=== PATIENT | male | born 1980 | race Caucasian/White ===

== ENCOUNTER 2022-06-14 14:51 | Inpatient (IN) | payer MEDICAID, OTHER ==
[~2022-06-14] VITALS: Ht 175.3 cm; Wt 104.3 kg
--- NOTE | 2022-06-14 14:51 | NUR ---
Seizure precautions in place.
--- NOTE | 2022-06-14 14:51 | NUR ---
1449 BIBA ALS TO ER BED 10
[2022-06-14 14:52] VITALS: BP 190/120
--- NOTE | 2022-06-14 14:52 | NUR ---
Dr. Verduzco evaluating pt at bedside
[2022-06-14] MEDS ORDERED: NALOXONE 0.4 MG/ML VIAL IVP ONE ×2 (14:53→14:55)
--- NOTE | 2022-06-14 14:55 | NUR ---
Note undone in EDM - 06/14/22 at 1508 by [facility] 42/M BIBA from home for unconscious. Per EMS, patient found unconscious A&OxO GCS 1-1-1 with pinpoint pupils. Per EMS, patient patient with witnessed seizure at home 1-2 min duration full body tonic/clonic. Pt in postical state s/p seizure. Narcan 2mg IN given + response; pt A&Ox4 after medication and admits to "using marijuana bought from a dispensary." EMS BS 238. Patient states nausea, vomiting, fatigue, "foggy." Denies chest pain, SOB, dizziness, headache. Cardiac montior in place; BP 190/120; SpO2 99% on room air; RR 17, HR 81. Bed locked in lowest position, side rails x 1. PMH: seizures, previous OD, DM, cardiac disorder Meds: insulin, unable to obtain med list Allergies: codeine, morphine
--- NOTE | 2022-06-14 14:55 | NUR ---
42/M BIBA from home for ALOC, witnessed seizure, possible overdose. Per EMS, patient found unconscious A&OxO GCS 1-1-1 with pinpoint pupils. Per EMS, patient patient with witnessed seizure at home 1-2 min duration full body tonic/clonic. Pt in postical state s/p seizure. Narcan 2mg IN given + response; pt A&Ox4 after medication and admits to "using marijuana bought from a dispensary." EMS BS 238. Patient states nausea, vomiting, fatigue, "foggy." Denies chest pain, SOB, dizziness, headache. Cardiac montior in place; BP 190/120; SpO2 99% on room air; RR 17, HR 81. Bed locked in lowest position, side rails x 1. PMH: seizures, previous OD, DM, cardiac disorder Meds: insulin, unable to obtain med list Allergies: codeine, morphine
--- NOTE | 2022-06-14 14:55 | NUR ---
PMH: keppra, hydralazine, insulin Patient states last seizure 4 months ago; stopped taking prescribed medications "15 meds" 2 months ago d/t side effects of "feeling tired."
[2022-06-14] MEDS ORDERED: LORazepam 2 MG/ML VIAL ONE (15:02)
--- NOTE | 2022-06-14 15:02 | NUR ---
Patient with seizure-like activity. Dr. Verduzco made aware and at bedside evaluating patient
--- NOTE | 2022-06-14 15:10 | NUR ---
Patient transported to CT by amanda with primary RN attached to phototypesetting equipment monitor.
[2022-06-14 15:11] LABS: BASOPHILS # (AUTO) 0.1 K/uL (0.00-0.22); BASOPHILS % (AUTO) 0.9 % (0.0-2.0); EOSINOPHILS # (AUTO) 0.2 K/uL (0-0.4); EOSINOPHILS % (AUTO) 1.5 % (0.0-4.0); HEMATOCRIT 46.4 % (36-52); HEMOGLOBIN 16.6 g/dL (12.0-18.0); LYMPHOCYTES # (AUTO) 2.9 K/uL (2.0-11.5); LYMPHOCYTES % (AUTO) 27.6 % (20.5-51.1); MEAN CORPUSCULAR HEMOGLOBIN 32 pg (27-31); MEAN CORPUSCULAR HGB CONC 36 g/dL (33-37); MEAN CORPUSCULAR VOLUME 89.3 fL (80-94); MONOCYTES # (AUTO) 0.9 K/uL (0.8-1.0); MONOCYTES % (AUTO) 8.8 % (1.7-9.3); NEUTROPHILS # (AUTO) 6.4 K/uL (1.8-7.7); NEUTROPHILS % (AUTO) 61.2 % (42.2-75.2); PLATELET COUNT (AUTO) 209 K/uL (140-450); RED CELL DISTRIBUTION WIDTH 13.2 % (11.6-13.7); WHITE BLOOD COUNT (AUTO) 10.5 K/uL (4.8-10.8)
[2022-06-14] MEDS ORDERED: NALOXONE PFS 2 MG/2 ML SYR ONE (15:16)
--- NOTE | 2022-06-14 15:21 | NUR ---
Patient with seizure-like activity after CT scan; secured in CT scanner with bilat UE stiffness and LLE convulsion. Charge nurse and Dr. Verduzco called/notified; verbal order for Ativan 1mg IVP to be given per Dr. Verduzco. Addendum: 06/14/22 at 1526 by MED Patient with seizure-like activity after CT scan; secured in CT scanner with bilat UE stiffness and LLE convulsion w/ 30 second duration. Charge nurse and Dr. Verduzco notified; verbal order for Ativan 1mg IVP to be given per Dr. Verduzco.
--- NOTE | 2022-06-14 15:22 | NUR ---
Ativan 1mg IVP given to LAC.
--- NOTE | 2022-06-14 15:23 | NUR ---
Pt with 1 episode vomiting 30cc no blood noted.
--- NOTE | 2022-06-14 15:28 | NUR ---
Patient returned from CT via gurney and placed onto personnel monitor. Bed locked in lowest position, side rails x 2. Seizure precautions remain in place.
--- NOTE | 2022-06-14 15:29 | NUR ---
BP 198/117 HR 91 SpO2 96% room air. Dr. Verduzco notified order to be placed.
[2022-06-14 15:30] LABS: PROTHROMBIN TIME 20.7 secs (10.8-13.4)
[2022-06-14 15:33] LABS: ALBUMIN 3.9 g/dL (3.4-5.0); ANION GAP 12.9 (8-16); CARBON DIOXIDE 30.2 mmol/L (21-32); CREATININE 1.2 mg/dL (0.6-1.3); POTASSIUM 3.1 mmol/L (3.5-5.1); TOTAL BILIRUBIN 0.8 mg/dL (0.0-1.0)
--- NOTE | 2022-06-14 15:36 | NUR ---
Attempted to void no urine output.
[2022-06-14] MEDS ORDERED: hydrALAZINE 20 MG/ML VIAL IVP ONE (15:40)
[2022-06-14] MEDS ORDERED: levETIRAcetam 1,000 MG in NACL 0.9% 100 ML IV ONE (15:40)
[2022-06-14] MEDS ORDERED: LORazepam 2 MG/ML VIAL IVP ONE (15:40)
--- NOTE | 2022-06-14 15:42 | NUR ---
Called pharmacy spoke with Elliot who states will prep Keppra order.
[2022-06-14] MEDS ORDERED: POTASSIUM CHLORIDE 10 MEQ TABER PO ONE (16:05)
[2022-06-14] MEDS ORDERED: NACL 0.9% 1,000 ML IV ONE (16:10)
--- NOTE | 2022-06-14 16:18 | NUR ---
Urinal in place; patient attempted to void states unable to.
[2022-06-14] MEDS ORDERED: ONDANSETRON 4 MG ODT PO ONE (16:50)
[2022-06-14] MEDS ORDERED: ONDANSETRON 4 MG/2 ML VIAL ONE (16:50)
[2022-06-14] MEDS ORDERED: ONDANSETRON 4 MG/2 ML VIAL IVP ONE (16:55)
--- NOTE | 2022-06-14 18:08 | NUR ---
BP 158/106; Dr. Verduzco made aware.
--- NOTE | 2022-06-14 18:09 | NUR ---
Urine sample and Ruby berkowitz walked to lab and handed to [facility].
--- NOTE | 2022-06-14 18:09 | NUR ---
Patient placed in new gown and blankets provided. Patient A&Ox4, denies nausea, pain at this time. Pt states "I feel groggy." case monitor in place. Bed locked in lowest position, side rails x 1.
--- NOTE | 2022-06-14 18:35 | NUR ---
POC: Nancy Retana (Sister) [phone]
--- NOTE | 2022-06-14 18:35 | NUR ---
Verbal consent received to speak with Nadja Breen (significant other); status update provided regarding admission.
--- NOTE | 2022-06-14 18:35 | NUR ---
Per Nadja, patient has pacemaker left chest 10/22. PMH: multiple CVA's (last 03/2022), DM2, nerve issues, HTN, seizures Meds: vimpat, potassium, keppra, amlodipine, basaglar pen, admelog, trulicity, hydralazine, lipitor Allergies: tylenol w/ codeine, morphine Nadja states pt with 2 witnessed seizures 2 mins each full tonic/clonic prior to arrival; pt able to ambulate to bed. Pt with vomiting episodes. Last seizure: 5 months ago. Denies head/neck/back pain, trauma/fall/injury. No oral trauma.
[2022-06-14 18:43] LABS: BARBITURATE, URINE NEGATIVE ng/ml (NEG <=200); BENZODIAZEPINE, URINE NEGATIVE ng/mL (NEG <=200); COCAINE, URINE NEGATIVE ng/mL (NEG <=300)
[2022-06-14 18:44] LABS: CANNABINOID, URINE POSITIVE ng/mL (NEG <=50); OPIATE, URINE NEGATIVE ng/mL (NEG <=2000); PHENCYCLIDINE SCREEN,URINE NEGATIVE ng/mL (NEG <=25)
[2022-06-14] MEDS ORDERED: ATOR10TA PO (18:49)
[2022-06-14] MEDS ORDERED: HYDR-1098 PO (18:49)
[2022-06-14] MEDS ORDERED: AMLO10TA PO (18:49)
[2022-06-14] MEDS ORDERED: INSU100I56 SQ (18:49)
[2022-06-14] MEDS ORDERED: LEVE750T25 PO (18:49)
[2022-06-14] MEDS ORDERED: DULA3PEN SQ (18:49)
[2022-06-14] MEDS ORDERED: INSU100V3 SQ (18:49)
[2022-06-14] MEDS ORDERED: LACO200T PO (18:49)
[2022-06-14] MEDS ORDERED: POTASSIUM CHLORIDE 10 MEQ TABER PO PRN (18:55)
[2022-06-14] MEDS ORDERED: DOCUSATE SODIUM 100 MG GELCAP PO PRN (18:55)
[2022-06-14] MEDS ORDERED: ACETAMINOPHEN 325 MG TAB PO PRN (18:55)
[2022-06-14] MEDS ORDERED: ZOLPIDEM 5 MG TAB PO PRN (18:55)
[2022-06-14] MEDS ORDERED: guaiFENesin DM 200/20 MG-10 ML 10 ML UDC PO PRN (18:55)
[2022-06-14] MEDS ORDERED: lisinopriL 20 MG TAB PO ONE (19:00)
[2022-06-14 19:25] LABS: CHOL/HDL RATIO 5.2 (1-4.5); FREE T4 (FREE THYROXINE) 1.38 ng/dL (0.76-1.46); MAGNESIUM 2.1 mg/dL (1.8-2.4); PHOSPHORUS 2.4 mg/dL (2.5-4.9); THYROID STIMULATING HORMONE 1.23 uIU/mL (0.34-3.74)
--- NOTE | 2022-06-14 19:27 | NUR ---
Report and transfer of care endorsed to BLADIMIR Odom and DEEP Rivero.
--- NOTE | 2022-06-14 19:40 | NUR ---
42 Y/O M DIAGNOSED WITH EPILEPTICUS, DENIES PAIN. A&OX4, NONAMBULATORY FOR SAFETY DUE TO SEIZURES. PT RECIEVED NARCAN 2MG FOR AN OD. PT IS POSITIVE FOR MARIJUANA. PT HAS A PACEMAKER IN HIS L CHEST. PMH- CVA 2021, DIABETES ALLERGIES- CODEINE, MORPHINE
--- NOTE | 2022-06-14 20:00 | NUR ---
PT REPOSTIONED FOR COMFORT
[2022-06-14] MEDS ORDERED: lisinopriL 20 MG TAB ONE (20:50)
[2022-06-14] MEDS: NACL 0.9% 1,000 ML IV SCH (21:00)
--- NOTE | 2022-06-14 21:40 | NUR ---
PATIENT YELLING NURSE ACROSS ER. STATED THAT HE WAS ANXIOUS AND AGITATED.
--- NOTE | 2022-06-14 21:44 | NUR ---
PATIENT FEELING ANXIOUS AND STATED THAT HE FEELS CRAMPING EVERYWHERE. PRN MEDS GIVEN ORDERED
[2022-06-14] MEDS: levETIRAcetam 500 MG TAB PO SCH (21:45)
[2022-06-14] MEDS: LORazepam 2 MG/ML VIAL IVP PRN (21:45)
--- NOTE | 2022-06-14 22:00 | NUR ---
BP 155/79.
--- NOTE | 2022-06-14 22:45 | NUR ---
Patient will be admitted to care of DOMINIQUE PENDLETON. Admited to [facility]G. Will go to room 119B. Belongings list completed. Report to KATHY ADAME.
[2022-06-14 22:55] VITALS: BP 148/97
--- NOTE | 2022-06-14 22:55 | NUR ---
RECEIVED PT IN BED, ATIVAN GIVEN IN ER, ABLE TO SAY FEW WORDS WHEN MOVING TO THE BED. NO S/SX OF PAIN NOR DISCOMFORT. NO ACUTE RESPIRATORY DISTRESS NOTED. SKIN WARM AND DRY TOP TOUCH. BED IN THE LOWEST AND LOCKED POSITION FOR SAFETY, PADDED SIDE RAILS FOR SEIZURE PRECAUTION. CALL LIGHT PLACED WITHIN REACH.
[2022-06-15] VITALS: BP 161/95
[2022-06-15] MEDS: hydrALAZINE 20 MG/ML VIAL IVP PRN ×2 (00:02→08:41)
--- NOTE | 2022-06-15 02:00 | NUR ---
ASSISTED PT TO THE BATHROOM AND BACK TO BED, HAD A BOWEL MOVEMENT, VOIDED AND COLLECTED URINE AND SENT TO THE LAB ORDERED. PT STILL SLEEPY AND WOULD LIKE TO ANSWER ADMITTING QUESTIONS IN THE MORNING. MADE COMFORTABLE IN BED. CALL LIGHT PLACED WITHIN REACH,
[2022-06-15 02:50] LABS: APPEARANCE,URINE CLEAR (CLEAR); BILIRUBIN,URINE NEGATIVE (NEGATIVE); BLOOD, URINE NEGATIVE (NEGATIVE); COLOR,URINE YELLOW (YELLOW); LEUKOCYTE ESTERASE ,URINE NEGATIVE (NEGATIVE); NITRITE, URINE NEGATIVE (NEGATIVE); UGLUCOSE 2+ (NEGATIVE)
[2022-06-15] MEDS: KETOROLAC 15 MG/ML VIAL IVP PRN ×2 (03:00→09:10)
[2022-06-15] MEDS: ONDANSETRON 4 MG/2 ML VIAL IM/IVP PRN ×4 (03:00→15:49)
--- NOTE | 2022-06-15 04:00 | NUR ---
PATIENT IS ASLEEP. NO S/SX OF PAIN NOR DISCOMFORT. CALL LIGHT IN REACH.
--- NOTE | 2022-06-15 05:48 | NUR ---
JUAN DANIEL ([facility]) WITH PHONE NUMBER [phone] CALLED TO GIVE MEDS PT WAS TAKING AT HOME. VIMPAT 200 MG 2X/DAY AND KEPPRA 500 MG 3 TABS 2X/DAY. READ BACK AND JUAN DANIEL CONFIRMED. WILL UPDATE MED RECON.
[2022-06-15] MEDS ORDERED: LEVE500T18 PO (05:52)
--- NOTE | 2022-06-15 06:24 | NUR ---
PATIENT IS ASLEEP. ALL NEEDS ATTENDED TO. NO S/SX OF DISTRESS NOTED. NO SEIZURE DURING THE SHIFT. SAFETY PRECAUTIONS IN PLACE, CALL LIGHT IN REACH.
[2022-06-15 07:01] LABS: BASOPHILS % (AUTO) 0.5 % (0.0-2.0); EOSINOPHILS # (AUTO) 0.1 K/uL (0-0.4); HEMATOCRIT 43.6 % (36-52); HEMOGLOBIN 15.6 g/dL (12.0-18.0); LYMPHOCYTES # (AUTO) 2.4 K/uL (2.0-11.5); LYMPHOCYTES % (AUTO) 30.1 % (20.5-51.1); MEAN CORPUSCULAR HEMOGLOBIN 32 pg (27-31); MEAN CORPUSCULAR HGB CONC 36 g/dL (33-37); MEAN CORPUSCULAR VOLUME 89.1 fL (80-94); MONOCYTES # (AUTO) 0.7 K/uL (0.8-1.0); MONOCYTES % (AUTO) 9.3 % (1.7-9.3); NEUTROPHILS # (AUTO) 4.8 K/uL (1.8-7.7); NEUTROPHILS % (AUTO) 59.1 % (42.2-75.2); PLATELET COUNT (AUTO) 208 K/uL (140-450); RED BLOOD CELL COUNT(AUTO) 4.89 MIL/uL (4.20-6.10); RED CELL DISTRIBUTION WIDTH 13.4 % (11.6-13.7)
[2022-06-15 07:36] LABS: ANION GAP 11.2 (8-16); CARBON DIOXIDE 28.9 mmol/L (21-32); POTASSIUM 3.1 mmol/L (3.5-5.1)
[2022-06-15 08:00] VITALS: BP 189/92
[2022-06-15] MEDS: levETIRAcetam 500 MG TAB PO SCH (08:39)
[2022-06-15] MEDS ORDERED: PANTOPRAZOLE 40 MG TABEC PO SCH (09:00)
[2022-06-15] MEDS ORDERED: methocarbamoL 500 MG TAB PO PRN (09:00)
[2022-06-15] MEDS: LORazepam 2 MG/ML VIAL IVP PRN (09:20)
[2022-06-15] MEDS: GABAPENTIN 300 MG CAP PO SCH ×3 (09:30→17:00)
[2022-06-15] MEDS ORDERED: levETIRAcetam 1,000 MG in NACL 0.9% 100 ML IV SCH (09:30)
[2022-06-15] MEDS ORDERED: KETOROLAC 30 MG/ML VIAL IM SCH (09:45)
--- NOTE | 2022-06-15 09:46 | NUR ---
PATIENT HAS BEEN SCREENED AND CATEGORIZED MODERATE NUTRITION RISK. PATIENT WILL BE SEEN WITHIN 3-5 DAYS OF ADMISSION. REVIEWED BY ASHOK GOODEN RD
--- NOTE | 2022-06-15 11:01 | NUR ---
AT ROUGHLY 0835, GRINDER SET UP OPERATOR CENTERLESS NOTIFIED PRIMARY RN OF BLOOD PRESSURE OF 189/92. PRN HYDRALAZINE ADMINISTERED PER MD ORDER, WELL SCHEDULED MEDICATION. PT ASSISTED TO THE REST ROOM, STAND BY ASSIST. PT REPORTS PAIN, AT 0910, PRN TORADOL ADMINISTERED IV. AT ROUGHLY 0915, PT BECAME TO SEIZE. ASSISTANCE WAS CALLED. PT LAID FLAT AND TO THE SIDE, PT REMAINED FREE OF INJURY. AT 0920, PRN ATIVAN ADMINSTERED FOR SEIZURE. DR RENEE AT BEDSIDE, AT 0920, ANOTHER DOSE OF 2MG/1ML, WAS ADMINISTERED IM INJECTION TO CONTROL SEIZURE. WARM COMPRESSIONS WERE PLACED ON PATIENTS LEGS FOR MUSCLE SPASMS. PT WAS PLACED ON 2L NC, O2 SATURATIONS OF 98%, BLOOD PRESSURE 148/88, HEART RATE 106 AND PLACED ON TELEMONITOR. SISTER AT BEDSIDE. AT 0955, KEPPRA WAS HUNG IV. AT 1043 ONE TIME DOSE OF TORADOL IM WAS ADMINISTERED. PT CURRENTLY STABLE IN BED, A&OX4, SISTER AT BEDSIDE. ALL SAFETY MEASURES IN PLACE.
[2022-06-15] MEDS ORDERED: NACL 0.9% 2,000 ML IV SCH (11:10)
[2022-06-15] MEDS ORDERED: NACL 0.9% 2,000 ML IV ONE (11:10)
[2022-06-15] MEDS: NACL 0.9% 1,000 ML IV SCH (11:35)
--- NOTE | 2022-06-15 11:41 | NUR ---
PRN ZOFRAN ADMINISTERED PER MD ORDER. MD ORDERED 2L BOLUS OF NS. NOTIFIED MD REGARDING HIGH BLOOD PRESSURE AND CONTRAINDICATION. PENDING NEW ORDERS
[2022-06-15 12:08] LABS: T4 (THYROXINE) 10.4 ug/dL (4.5-12.0)
--- NOTE | 2022-06-15 13:18 | NUR ---
PT HAS BEEN ENDORSED TO ADZE RN. PT ASLEEP IN BED WITH CHEST RISING AND FALLING EVEN AND UNLABORED.
[2022-06-15 16:00] VITALS: BP 149/79
--- NOTE | 2022-06-15 19:30 | NUR ---
RECEIVED REPORT FROM DAY SHIFT RN JAIMIE FOR CONTINUITY OF CARE. PT IS ALERT AND ORIENTATED. PT HAS MULTIPLE IV ON RIGHT AC 20 GAUGE AND LEFT AC 20 GAUGE. SALINE LOCK. PT REFUSED IV FLUIDS. PT HAS BEEN VOMITING AND HAD A SEIZURE IN THE MORNING. ACCORDING TO DAY SHIFT RN PT WANTS TO LEAVE AMA. WAS NOTIFIED. CHECKED WITH PT AND HE WANTS TO LEAVE AMA. DR. RENEE WAS NOTIFIED.
--- NOTE | 2022-06-15 19:50 | NUR ---
PT LEFT AMA WITH . PT WAS SAFELY WHEELED TO PRIVATE VEHICLE.
== END 2022-06-15 19:50 | disposition left against medical advice (07) | DRG 53 ==
LOC: MED 14:51 → MMU 18:56 → MTU 20:54
PROVIDERS: ADMIT Family Medicine; ATTEND Family Medicine
PROC: 4A00X4Z Measurement of Central Nervous Electrical Activity, External Approach (ICD-10-PCS; principal; 2022-06-15)
DX: G40.409 Other generalized epilepsy and epileptic syndromes, not intractable, without status epilepticus (principal); K76.0 Fatty (change of) liver, not elsewhere classified; E11.65 Type 2 diabetes mellitus with hyperglycemia; Z83.3 Family history of diabetes mellitus; F12.10 Cannabis abuse, uncomplicated; E87.6 Hypokalemia; E78.1 Pure hyperglyceridemia; E78.5 Hyperlipidemia, unspecified; Z20.822 Contact with and (suspected) exposure to COVID-19; M62.838 Other muscle spasm; Z53.29 Procedure and treatment not carried out because of patient's decision for other reasons; Z79.899 Other long term (current) drug therapy; Z88.1 Allergy status to other antibiotic agents; Z88.5 Allergy status to narcotic agent; Z86.73 Personal history of transient ischemic attack (TIA), and cerebral infarction without residual deficits; Z95.0 Presence of cardiac pacemaker; Z79.4 Long term (current) use of insulin; Z82.49 Family history of ischemic heart disease and other diseases of the circulatory system
CPT/HCPCS: 36415; 70450; 71045; 76705; 80048; 80053; 80305; 81003; 82150; 83036; 83690; 83735; 83880; 84100; 84436; 84439; 84443; 84479; 84484; 85025; 85610; 85730; 87081; 95816; 96365; 96375; 99291; J0360; J1885; J1953; J2060; J2310; J2405; J7030; Q0092